=== PATIENT | female | born 1955 | race Caucasian/White ===

== ENCOUNTER 2017-02-07 05:53 | Inpatient (IN) | payer OTHER ==
[2017-01-21 16:08] LABS: % IMMATURE GRANULYOCYTES 0.2 % (0.0-1.1); ABSOLUTE IMMATURE GRANULOCYTES 0.01 10^3/uL (0.00-0.10); ADD DIFF? NO; ADD MORPH? NO; ADD SCAN? NO; ATYPICAL LYMPHOCYTE FLAG 30 (0-99); FRAGMENT RBC FLAG 0 (0-99); HEMATOCRIT 45.4 % (38.0-47.0); HEMOGLOBIN 15.2 g/dL (12.6-16.3); LEFT SHIFT FLG 0 (0-99); LIPEMIA HEMOLYSIS FLAG 80 (0-99); MEAN CELL HEMOGLOBIN 34.5 pg (27.9-34.1); MEAN CELL HEMOGLOBIN CONCENTR. 33.5 g/dL (32.4-36.7); MEAN CELL VOLUME 102.9 fL (81.5-99.8); MEAN PLATELET VOLUME 9.8 fL (8.7-11.7); PLATELET CLUMPS FLAG 0 (0-99); PLATELET COUNT 227 10^3/uL (150-400); RED BLOOD CELL COUNT 4.41 10^6/uL (4.18-5.33); RED CELL DISTRIBUTION WIDTH 13.9 % (11.5-15.2)
[2017-02-07] MEDS ORDERED: DEXAMETHASONE 4 MG/ML VIAL IVP ONE (06:00)
[2017-02-07] MEDS ORDERED: FAMOTIDINE 20 MG TAB PO ONE (06:00)
[2017-02-07] MEDS ORDERED: ACETAMINOPHEN 325 MG TAB PO ONE (06:00)
[2017-02-07] MEDS ORDERED: CHLORHEXIDINE GLUC HIBICLENS 118 ML BTL TP ONE (06:00)
[2017-02-07] MEDS ORDERED: CLINDAMYCIN 900 MG/DEXTROSE 50 ML IV ONE (06:00)
[2017-02-07] MEDS ORDERED: ROPI/epiNEPH/KETOROLAC/morphINE JOINT COCKTAIL IU ONE (06:00)
[2017-02-07] MEDS ORDERED: LIDOCAINE 1% 2 ML INJ ONE (06:03)
[2017-02-07] MEDS ORDERED: LR 1,000 ML IV ONE (06:15)
[2017-02-07] MEDS ORDERED: CLINDAMYCIN 600 MG/DEXTROSE 50 ML IV ONE (06:30)
[2017-02-07] MEDS ORDERED: ceFAZolin 1 GM/5 ML SYR ONE (06:44)
[2017-02-07] MEDS ORDERED: THROMBIN (BOVINE) 5,000 UNIT VIAL TP ONE (06:44)
[2017-02-07] MEDS ORDERED: CALCIUM CHLORIDE 1 GM/10 ML INJ ONE (06:44)
[2017-02-07] MEDS ORDERED: MIDAZOLAM 2 MG/2 ML VIAL ONE (07:09)
[2017-02-07] MEDS ORDERED: PROPOFOL/EMULSION 500 MG/50 ML BOTTLE IV ONE ×2 (07:12→08:07)
[2017-02-07] MEDS ORDERED: fentaNYL 100 MCG/2 ML INJ ONE (07:39)
[2017-02-07] MEDS ORDERED: ONDANSETRON 4 MG/2 ML VIAL ONE (07:50)
[2017-02-07] MEDS ORDERED: KETOROLAC 30 MG/1 ML SDV ONE (07:50)
[2017-02-07] MEDS ORDERED: ROPIVACAINE HCL 150 MG/30 ML INJ ONE (08:12)
[2017-02-07] MEDS ORDERED: DIPHENOXYLATE/ATROPINE LOMOTIL 1 TAB PO PRN (08:53)
[2017-02-07] MEDS ORDERED: METOCLOPRAMIDE 10 MG/2 ML VIAL IVP PRN (08:53)
[2017-02-07] MEDS ORDERED: MAGNESIUM HYDROXIDE 30 ML UDCUP PO PRN (08:53)
[2017-02-07] MEDS ORDERED: ONDANSETRON 4 MG/2 ML VIAL IVP PRN (08:53)
[2017-02-07] MEDS ORDERED: TEMAZEPAM 15 MG CAP PO PRN (08:53)
[2017-02-07] MEDS ORDERED: POLYETHYLENE GLYCOL 3350 17 GM PKT PO PRN (08:53)
[2017-02-07] MEDS ORDERED: ONDANSETRON DISINTEGRATING 4 MG TAB PO PRN (08:53)
[2017-02-07] MEDS ORDERED: BISACODYL 10 MG SUPP PR PRN (08:53)
[2017-02-07] MEDS ORDERED: PROMETHAZINE HCL 25 MG SUPPR PR PRN (08:53)
[2017-02-07] MEDS ORDERED: CYCLOBENZAPRINE 10 MG TAB PO PRN (08:53)
[2017-02-07] MEDS ORDERED: PHARMACY PAIN CONSULT 1 EA MISC PRN (08:53)
[2017-02-07] MEDS ORDERED: diphenhydrAMINE 25 MG CAP PO PRN (08:53)
[2017-02-07] MEDS ORDERED: LACTULOSE 20 GM/30 ML UDCUP PO PRN (08:53)
--- NOTE | 2017-02-07 08:53 | POSTOPPROG ---
Post Op Note Date of Operation: 02/07/17 Surgeon: Esteban Mcdowell Data Clerk: Jeremiah Mello Anesthesiologist: Peterson Odom Anesthesia: Spinal Pre-op Diagnosis: Patello-femoral OA Post-op Diagnosis: same Procedure: P-F arthroplasty Findings: Severe OA P-F compartment Inf/Abcess present in the surg proc area at time of surgery?: No EBL: Minimal Complications: none
[2017-02-07] MEDS ORDERED: LR 1,000 ML IV SCH (09:00)
--- NOTE | 2017-02-07 09:46 | GOP ---
[f rep st] OPERATIVE REPORT DATE OF OPERATION: 02/07/2017 SURGEON: Esteban Mcdowell MD CRA OFFICER: Jeremiah Mello, CUSTODIAL ENGINEER, [facility]. ANESTHESIA: Spinal. ANESTHESIOLOGIST: Dr. Odom. PREOPERATIVE DIAGNOSIS: Patellofemoral arthritis, left knee. POSTOPERATIVE DIAGNOSIS: Patellofemoral arthritis, left knee. PROCEDURE PERFORMED: Patellofemoral arthroplasty. FINDINGS: INDICATIONS: The patient is a 61-year-old female with long-standing patellofemoral arthritis that h as failed to improve with conservative management. She has undergone a patellofemoral arthroplasty on the right, and she now returns for patellofemoral arthroplasty on the left. DESCRIPTION OF PROCEDURE: After appropriate informed consent was obtained, the patient was taken to the operating room, placed supine on the operating table. Time-out was performed. Patient was nelda ntified. Correct side was identified. She received 600 mg of clindamycin due to her penicillin all ergy. Dr. Odom administered a spinal anesthetic. She was then positioned on the table. Left low er extremity was prepped and draped in the usual sterile fashion. All bony prominences were well pa dded. I exsanguinated the limb, inflated the tourniquet to 250 mmHg. A standard midline incision w ith a medial parapatellar arthrotomy was performed. The patella was everted. She had severe arthri tis involving the patellofemoral compartment. The patella measured a little over 20 mm thick at its thickest portion. I resected about 8 mm from the patella, sized to a size 34, and we drilled the l ug holes there. We then turned our attention to the femur. Using our extramedullary guide, we iden tified our starting point for our intramedullary guide. We drilled our femur, placed our intramedul kyaw guide in about 3 degrees of external rotation, pinned it in place. We then placed our jig and made our distal femoral cut without notching the femur. We then sized the femur to a size 2. The 3 overhung a little bit. We pinned our guide in place. We then reamed our proximal and distal holes , and using our osteotomes we finished our cuts both proximally and distally. The guide was removed , and we placed our trial implant. It fit nice and flush. There was no overhang in the trochlear g roove. We then mixed cement on the back table. We irrigated the knee with pulsatile lavage and dri ed the bone. I cemented the trochlear prosthesis followed by the patella. Excess cement was remove d. We held pressure on the trochlea while the cement cured, and our patellar clamp held the patella in place while it cured. Once the cement was hardened, we checked the tracking of the patella. It was excellent. Irrigated the wound a second time. Closed the extensor mechanism with 0 Vicryl. I placed 5 mL of PRP beneath the repair and 5 mL on top of the repair. Superficial layer was closed with 2-0 Vicryl. Skin was closed with a 3-0 Monocryl stitch in a subcuticular fashion. Sterile eli ssing was applied. The patient was awakened from anesthesia, taken to the recovery room in satisfac tory condition. There were no immediate intraoperative complications. Brenden Mello's assistance was required throughout the entire case. IMPLANTS USED: An Arthrex iBalance size 2 femur and 34 patella, cemented. COMPLICATIONS: None. DRAINS: None. TOTAL TOURNIQUET TIME: 63 minutes at 250 mmHg. /[id number]/MODL
[2017-02-07] MEDS: SENNOSIDES/DOCUSATE SODIUM TAB PO SCH ×2 (11:16→21:17)
[2017-02-07] MEDS: LOSARTAN POTASSIUM 50 MG TAB PO SCH (12:04)
[2017-02-07] MEDS: ACETAMINOPHEN 325 MG TAB PO SCH ×2 (12:04→18:12)
[2017-02-07] MEDS: CLINDAMYCIN 600 MG/DEXTROSE 50 ML IV SCH ×2 (14:13→21:17)
[2017-02-07] MEDS: oxyCODONE IR 5 MG TAB PO PRN ×2 (15:48→19:21)
[2017-02-07] MEDS: FAMOTIDINE 20 MG TAB PO SCH (21:17)
[2017-02-07] MEDS: ASPIRIN 325 MG TAB PO SCH (21:21)
[2017-02-08] MEDS: ACETAMINOPHEN 325 MG TAB PO SCH ×2 (00:01→04:46)
[2017-02-08] MEDS: oxyCODONE IR 5 MG TAB PO PRN ×2 (00:01→04:46)
[2017-02-08 05:11] LABS: HEMATOCRIT 32.2 % (38.0-47.0); HEMOGLOBIN 10.7 g/dL (12.6-16.3)
--- NOTE | 2017-02-08 07:40 | SOAPPROG ---
SOAP Progress Note Assessment/Plan: Assessment: Plan: 02/08/17 07:39 POD#1 PF arthroplasty DC home Today May shower in dressing ASA 325 x 14 days F/U [place] 10-14 days Subjective: Feeling good walking in halls Objective: Dressing changed, small amount blood calf soft ROM 0-120 5/5 df/pf 1+ dp/tp pulses Vital Signs Temp Pulse Resp BP Pulse Ox 36.8 C 82 19 149/96 H 89 L 02/08/17 04:32 02/08/17 04:32 02/08/17 04:32 02/08/17 04:32 02/08/17 04:32 Laboratory Results 02/08/17 04:25 02/07/17 02/08/17 02/09/17 05:59 05:59 05:59 Intake Total 3350 Output Total 925 Balance 2425 ICD10 Worksheet Patient Problems: Problems Problem Status Onset Osteoarthritis of patellofemoral joints, bilateral Acute
[2017-02-08 08:11] VITALS: BP 141/88; PULSE 78; RESP 16; TEMP 97.5; O2SAT 94
[2017-02-08] MEDS: ASPIRIN 325 MG TAB PO SCH (08:24)
[2017-02-08] MEDS: SENNOSIDES/DOCUSATE SODIUM TAB PO SCH (08:24)
[2017-02-08] MEDS: LOSARTAN POTASSIUM 50 MG TAB PO SCH (08:25)
[2017-02-08] MEDS: FAMOTIDINE 20 MG TAB PO SCH (08:25)
[2017-02-08] MEDS ORDERED: FLU VACC QS 2016-17(3-64YR)/PF 0.5 ML SYR (FLUARIX QUAD) IM ONE (08:27)
== END 2017-02-08 10:23 | disposition home or self-care (01) | DRG 470 ==
LOC: F3N 05:53
PROVIDERS: ADMIT Orthopaedic Surgery; ATTEND Orthopaedic Surgery
PROC: 0SRD0J9 Replacement of Left Knee Joint with Synthetic Substitute, Cemented, Open Approach (ICD-10-PCS; principal; 2017-02-07 07:15)
DX: M17.12 Unilateral primary osteoarthritis, left knee (principal); I10 Essential (primary) hypertension; Z96.651 Presence of right artificial knee joint
CPT/HCPCS: 97110-GP; 97116-GP; 97161-GP; C1713; G0008; J0171; J1100; J1885; J2250; J2405; J2704; J2795; J3010

== ENCOUNTER 2017-03-02 19:40 | Emergency (ER) | payer OTHER ==
--- NOTE | 2017-03-02 20:12 | EDPHY ---
H & P Stated Complaint: l knee pain s/p surgery 02/07 resurfacing Time Seen by Provider: 03/02/17 20:09 HPI/ROS: CHIEF COMPLAINT: Left knee redness HISTORY OF PRESENT ILLNESS: 61-year-old female presents emergency department complaining of left knee redness and swelling. Patient had a patellofemoral arthroplasty by Dr. Mcdowell 3 weeks ago. She saw him in the office 4 days ago and she had 2 areas of redness along her incision. He prescribed her 300 mg of clindamycin to take 3 times daily. Patient was on a road trip to [place] and returned yesterday, she did not want to start the clindamycin until return home as she was concerned about the side effect of diarrhea. Patient started this clindamycin yesterday morning, she took 3 doses yesterday and has taken 2 doses today. Yesterday she had a significant increase in swelling and redness. She denies fevers or chills, she does report nausea though thinks it is from the clindamycin. She reports her knee feels stiff. REVIEW OF SYSTEMS: A comprehensive 10 point review of systems is otherwise negative aside from elements mentioned in the history of present illness. Source: Patient, Family Exam Limitations: No limitations - Personal History Current Tetanus/Diphtheria Vaccine: Unsure Current Tetanus Diphtheria and Acellular Pertussis (TDAP): Unsure - Medical/Surgical History Hx Asthma: No Hx Chronic Respiratory Disease: No Hx Diabetes: No Hx Cardiac Disease: No Hx Renal Disease: No Hx Cirrhosis: No Hx Alcoholism: No Hx HIV/AIDS: No Hx Splenectomy or Spleen Trauma: No Other PMH: htn, OA - Social History Smoking Status: Former smoker - Physical Exam Exam: Physical Exam Gen: Alert and Oriented, NAD HEENT: PERRL, moist mucous membranes NECK: no meningismus CV: regular rate and regular rhythm PULM: CTAB, no wheezes ABDOMEN: soft, non tender to palpation, BS present BACK: No CVA tenderness NEURO: Neurologically grossly intact EXTREMITIES: Left knee with a swelling, decreased range of motion due to recent surgery, 2+ pedal pulses, sensation intact to light touch SKIN: Left knee with swelling and erythema to anterior knee extending down to mid chery, vertical incision over center of knee has 2 areas of scab, no drainage , warm to the touch. PSYCH: answers questions appropriately. Constitutional: Initial Vital Signs Temperature (C) 36.9 C 03/02/17 19:50 Heart Rate 99 03/02/17 19:50 Respiratory Rate 18 03/02/17 19:50 Blood Pressure 168/103 H 03/02/17 19:50 O2 Sat (%) 95 03/02/17 19:50 O2 Delivery Mode Room Air Allergies/Adverse Reactions: Penicillins Allergy (Severe, Verified 03/25/12 10:41) blow up like balloon codeine [Codeine] Allergy (Intermediate, Verified 03/25/12 10:40) "crazy" Home Medications: Medication Instructions Recorded Ibuprofen [Motrin (*)] 200 mg PO DAILY PRN 09/20/16 Losartan Potassium [Cozaar 50 mg 100 mg PO DAILY 09/20/16 (*)] Losartan Potassium [Cozaar 50 mg 100 mg PO DAILY #0 tab 02/08/17 (*)] Cephalexin [Keflex] 500 mg PO QID 5 Days 03/02/17 Medical Decision Making ED Course/Re-evaluation: IV established, CBC, chemistry panel, blood cultures, sed rate and CRP ordered. CBC and chemistry panel unremarkable, sed rate is normal, CRP is 37. I spoke with Dr. Mcdowell. He would like to give the patient 2 grams of ancef IV and sent her home with Keflex. He will see her tomorrow in the office at 1:30 pm. Patient is afebrile, she is comfortable with this plan. She had no reaction to the IV Ancef. I think the patient likely has a superficial cellulitis and not a septic joint as she is able to flex extend her knee without pain, she is afebrile, a normal white count. I am comfortable with the plan of discharging her home and following her up in July's office tomorrow. Patient is comfortable with this plan. Differential Diagnosis: Diagnosis considered but not limited to cellulitis, septic joint, abscess, DVT. - Data Points Laboratory Results: Laboratory Results 03/02/17 19:45 03/02/17 19:45 03/02/17 03/02/17 19:45 19:45 WBC 8.71 10^3/uL 10^3/uL (3.80-9.50) RBC 3.70 10^6/uL L 10^6/uL (4.18-5.33) Hgb 12.7 g/dL g/dL (12.6-16.3) Hct 37.4 % L % (38.0-47.0) MCV 101.1 fL H fL (81.5-99.8) MCH 34.3 pg H pg (27.9-34.1) MCHC 34.0 g/dL g/dL (32.4-36.7) RDW 13.4 % % (11.5-15.2) Plt Count 286 10^3/uL 10^3/uL (150-400) MPV 9.9 fL fL (8.7-11.7) Neut % (Auto) 62.2 % % (39.3-74.2) Lymph % (Auto) 23.1 % % (15.0-45.0) [place] % (Auto) 13.1 % H % (4.5-13.0) Eos % (Auto) 1.3 % % (0.6-7.6) Baso % (Auto) 0.1 % L % (0.3-1.7) Nucleat RBC Rel Count 0.0 % % (0.0-0.2) Absolute Neuts (auto) 5.42 10^3/uL 10^3/uL (1.70-6.50) Absolute Lymphs (auto) 2.01 10^3/uL 10^3/uL (1.00-3.00) Absolute Monos (auto) 1.14 10^3/uL H 10^3/uL (0.30-0.80) Absolute Eos (auto) 0.11 10^3/uL 10^3/uL (0.03-0.40) Absolute Basos (auto) 0.01 10^3/uL L 10^3/uL (0.02-0.10) Absolute Nucleated RBC 0.00 10^3/uL 10^3/uL (0-0.01) Immature Gran % 0.2 % % (0.0-1.1) Immature Gran # 0.02 10^3/uL 10^3/uL (0.00-0.10) ESR 19 MM/HR MM/HR (0-30) Sodium 137 mEq/L mEq/L (134-144) Potassium 4.5 mEq/L mEq/L (3.5-5.2) Chloride 107 mEq/L mEq/L (97-110) Carbon Dioxide 19 mEq/l L mEq/l (22-31) Anion Gap 11 mEq/L mEq/L (8-16) BUN 23 mg/dL mg/dL (7-23) Creatinine 0.8 mg/dL mg/dL (0.6-1.0) Estimated GFR > 60 Glucose 85 mg/dL mg/dL (70-100) Calcium 9.5 mg/dL mg/dL (8.5-10.4) C-Reactive Protein 37.6 mg/L H mg/L (<10.0) Medications Given: Discontinued Medications Cephalexin (Keflex 500 Mg Prepack#4) 1 btl TAKEHOME EDNOW ONE PRN Reason: Protocol Stop: 03/02/17 22:11 Last Admin: 03/02/17 22:17 Dose: 1 btl Cefazolin Sodium/Dextrose (Ancef 2 Gm (Premix)) 100 mls @ 200 mls/hr IV EDNOW ONE PRN Reason: Protocol Stop: 03/02/17 21:44 Last Admin: 03/02/17 21:30 Dose: 100 mls Ketorolac Tromethamine (Toradol) 15 mg IVP EDNOW ONE Stop: 03/02/17 21:34 Last Admin: 03/02/17 21:39 Dose: 15 mg Departure - Departure Disposition: Home, Routine, Self-Care Clinical Impression: Cellulitis Qualifiers: Site of cellulitis: extremity Site of cellulitis of extremity: lower extremity Laterality: left Qualified Code(s): L03.116 - Cellulitis of left lower limb Condition: Good Instructions: Cephalexin (By mouth), Cellulitis (ED) Additional Instructions: Take 500 mg of Keflex 4 times a day for 5 days. Follow up with Dr. Mcdowell in his office tomorrow at 1:30 pm. Return to the emergency department for any worsening symptoms, new symptoms or concerns. Referrals: Esteban Mcdowell MD [Medical Doctor] - As per Instructions Prescriptions: Cephalexin [Keflex] 500 mg PO QID 5 Days
[2017-03-02 20:41] LABS: % IMMATURE GRANULYOCYTES 0.2 % (0.0-1.1); ABSOLUTE IMMATURE GRANULOCYTES 0.02 10^3/uL (0.00-0.10); ADD DIFF? NO; ADD MORPH? NO; ADD SCAN? NO; ATYPICAL LYMPHOCYTE FLAG 0 (0-99); FRAGMENT RBC FLAG 0 (0-99); HEMATOCRIT 37.4 % (38.0-47.0); HEMOGLOBIN 12.7 g/dL (12.6-16.3); LEFT SHIFT FLG 0 (0-99); LIPEMIA HEMOLYSIS FLAG 90 (0-99); MEAN CELL HEMOGLOBIN 34.3 pg (27.9-34.1); MEAN CELL VOLUME 101.1 fL (81.5-99.8); MEAN PLATELET VOLUME 9.9 fL (8.7-11.7); PLATELET CLUMPS FLAG 10 (0-99); PLATELET COUNT 286 10^3/uL (150-400); RED CELL DISTRIBUTION WIDTH 13.4 % (11.5-15.2)
[2017-03-02 20:52] LABS: ANION GAP 11 mEq/L (8-16); C-REACTIVE PROTEIN 37.6 mg/L (<10.0); CALCIUM 9.5 mg/dL (8.5-10.4); CARBON DIOXIDE 19 mEq/l (22-31); CHLORIDE 107 mEq/L (97-110); CREATININE 0.8 mg/dL (0.6-1.0); GLOMERULAR FILTRATION RATE > 60; GLUCOSE 85 mg/dL (70-100); POTASSIUM 4.5 mEq/L (3.5-5.2); SODIUM 137 mEq/L (134-144)
[2017-03-02 20:56] LABS: SEDIMENTATION RATE 19 MM/HR (0-30)
[2017-03-02] MEDS ORDERED: ceFAZolin 2 GM/DEXTROSE 100 ML IV ONE (21:15)
[2017-03-02] MEDS ORDERED: KETOROLAC 15 MG/1 ML SDV IVP ONE (21:33)
[2017-03-02 21:35] VITALS: RESP 16
[2017-03-02] MEDS ORDERED: CEPHALEXIN 500MG PREPACK#4 BTL TAKEHOME ONE (22:10)
[2017-03-02 22:32] VITALS: BP 167/94; PULSE 91; TEMP 99.1; O2SAT 97
== END 2017-03-02 22:31 | disposition home or self-care (01) ==
DX: L03.116 Cellulitis of left lower limb (principal); I10 Essential (primary) hypertension; Z87.891 Personal history of nicotine dependence
CPT/HCPCS: 96365; J0690; J1885

== ENCOUNTER → 2017-03-19 | Outpatient (CLI) | payer OTHER ==
[~2017-03-19] MED LIST: IOPAMIDOL (ISOVUE-300) 100 ML BTL IV ONE
== END ==
LOC: FIMAGING 12:53
PROVIDERS: ATTEND Internal Medicine
DX: S22.42XA Multiple fractures of ribs, left side, initial encounter for closed fracture (principal); W19.XXXA Unspecified fall, initial encounter
CPT/HCPCS: Q9967

== ENCOUNTER → 2017-04-11 | Outpatient (CLI) | payer OTHER | LOC: BMCIMAGING 10:26 | PROVIDERS: ATTEND Family Medicine | DX: S22.42XG Multiple fractures of ribs, left side, subsequent encounter for fracture with delayed healing (principal) | CPT/HCPCS: 71101-PO ==

== ENCOUNTER → 2018-03-16 | Outpatient (CLI) | payer OTHER | LOC: BMCIMAGING 07:16 | PROVIDERS: ATTEND Internal Medicine | DX: R94.5 Abnormal results of liver function studies (principal) ==

== ENCOUNTER → 2018-04-10 | Outpatient (CLI) | payer OTHER | LOC: BMCIMAGING 12:15 | PROVIDERS: ATTEND Orthopaedic Surgery Hand Surgery | DX: M25.522 Pain in left elbow (principal) ==